=== PATIENT | male | born 1955 | race Caucasian/White ===

== ENCOUNTER → 2022-01-11 13:31 | Outpatient (BNVA) | payer MEDICARE, SELFPAY | PROVIDERS: Family Provider Family Medicine; Visit Provider Podiatrist Foot & Ankle Surgery | DX: E11.621 Type 2 diabetes mellitus with foot ulcer (principal); L97.513 Non-pressure chronic ulcer of other part of right foot with necrosis of muscle; E11.42 Type 2 diabetes mellitus with diabetic polyneuropathy | CPT/HCPCS: 11043; 73630; 99204 ==

== ENCOUNTER 2022-01-11 15:28 | Outpatient (CLI) | payer MEDICARE, SELFPAY | END 2022-01-11 15:29 | disposition home or self-care (01) | LOC: SPT 15:29 | PROVIDERS: Family Provider Family Medicine; Visit Provider Podiatrist Foot & Ankle Surgery | DX: Z46.89 Encounter for fitting and adjustment of other specified devices (principal); L97.513 Non-pressure chronic ulcer of other part of right foot with necrosis of muscle | CPT/HCPCS: 97760; L4361 ==

== ENCOUNTER → 2022-02-03 14:31 | Outpatient (BNVA) | payer MEDICARE, SELFPAY | PROVIDERS: Family Provider Family Medicine; Visit Provider Podiatrist Foot & Ankle Surgery | DX: E11.621 Type 2 diabetes mellitus with foot ulcer (principal); L97.513 Non-pressure chronic ulcer of other part of right foot with necrosis of muscle; E11.42 Type 2 diabetes mellitus with diabetic polyneuropathy; Z79.4 Long term (current) use of insulin | CPT/HCPCS: 11043 ==

== ENCOUNTER → 2022-02-17 15:41 | Outpatient (BNVA) | payer MEDICARE, SELFPAY | PROVIDERS: Family Provider Family Medicine; Visit Provider Podiatrist Foot & Ankle Surgery | DX: E11.621 Type 2 diabetes mellitus with foot ulcer (principal); L97.513 Non-pressure chronic ulcer of other part of right foot with necrosis of muscle; E11.42 Type 2 diabetes mellitus with diabetic polyneuropathy; Z79.4 Long term (current) use of insulin | CPT/HCPCS: 11043 ==

== ENCOUNTER → 2022-04-07 10:03 | Outpatient (BNVA) | payer MEDICARE, SELFPAY | PROVIDERS: Family Provider Family Medicine; Visit Provider Podiatrist Foot & Ankle Surgery | DX: E11.621 Type 2 diabetes mellitus with foot ulcer (principal); L97.513 Non-pressure chronic ulcer of other part of right foot with necrosis of muscle; E11.42 Type 2 diabetes mellitus with diabetic polyneuropathy; Z79.4 Long term (current) use of insulin | CPT/HCPCS: 11042 ==

== ENCOUNTER → 2022-04-21 10:56 | Outpatient (BNVA) | payer MEDICARE, SELFPAY | PROVIDERS: Family Provider Family Medicine; Visit Provider Podiatrist Foot & Ankle Surgery | DX: E11.621 Type 2 diabetes mellitus with foot ulcer (principal); L97.513 Non-pressure chronic ulcer of other part of right foot with necrosis of muscle; E11.42 Type 2 diabetes mellitus with diabetic polyneuropathy; Z79.4 Long term (current) use of insulin | CPT/HCPCS: 11042 ==

== ENCOUNTER → 2022-09-14 12:06 | Outpatient (BNVA) | payer MEDICARE, MEDICAID, SELFPAY | PROVIDERS: Family Provider Family Medicine; PCP Family Medicine; Visit Provider Otolaryngology | DX: L02.11 Cutaneous abscess of neck (principal) | CPT/HCPCS: 87070; 87075; 87205; 99204 ==

== ENCOUNTER 2022-09-15 09:45 | Outpatient (CLI) | payer MEDICARE, MEDICAID, SELFPAY ==
--- NOTE | 2022-09-15 10:00 | CT_ITS ---
WS: [id number] CT NECK TECHNIQUE: Noncontrast CT of the neck with coronal and sagittal reformatted images. CLINICAL INFORMATION: abscess of neck COMPARISON: None. DLP: 238.[address] scans at [facility] use at least one of these dose optimization techniques: automated e xposure control; mA and/or kV adjustment per patient size (includes targeted exams where dose is matc hed to clinical indication); or iterative reconstruction. FINDINGS: Noncontrast neck CT. In the area of concern, LEFT neck, at the level of the parotid tail is a large h eterogeneous soft tissue mass with central necrosis or abscess. Contrast not administered. Soft tissu e mass/abscess measures 3.6 x 4.5 x 4.8 cm AP by transverse by craniocaudal. Small amount of surround ing induration. Small amount of air centrally may be due to recent instrumentation. Loss of the fat p aneta involving the surrounding LEFT sternocleidomastoid, parotid tail, and submandibular gland. This abuts the carotid sheath. Associated surrounding soft tissue thickening. Neoplasm should be excluded in a patient this age. RIGHT parotid gland and submandibular gland are normal. Tongue base appears normal. Normal palatine t onsils. No evidence of supraglottic or glottic mass. Lung apices are well aerated. Slightly spiculate d opacity or fibrosis in the LEFT upper lobe anteriorly measuring 8 mm. Lung apices are otherwise wel l aerated. No cervical lymphadenopathy. Carotid bulb calcification bilaterally. Moderate spondylitic changes cervical spine. Mild mucosal thickening LEFT mastoid tip. RIGHT mastoid air cells well aerate d. Retention cyst RIGHT maxillary sinus. Polypoid mucosal thickening in the partially visualized para nasal sinuses. CT/CT neck wo con [id number] IMPRESSION: 1. Heterogeneous soft tissue mass with central necrosis or abscess in the area of concern measuring 3.6 x 4.5 x 4.8 cm AP by transverse by craniocaudal. Smal l amount of surrounding induration. Differential considerations include necroti c neoplasm versus thick walled abscess. Neoplasm should be excluded in a patien t this age. Contrast not administered today. 2. Small amount of surrounding induration and soft tissue edema. A few adjacen t slightly prominent lymph nodes. 3. No evidence of supraglottic or glottic mass. 4. 8mm slightly spiculated LEFT upper lobe opacity anteriorly versus focal fib rosis. Recommend chest CT follow-up.
== END 2022-09-15 09:46 | disposition home or self-care (01) ==
LOC: RAD 09:51
PROVIDERS: PCP Family Medicine; Visit Provider Otolaryngology
DX: L02.11 Cutaneous abscess of neck (principal)
CPT/HCPCS: 70490

== ENCOUNTER → 2022-09-27 10:03 | Outpatient (BNVA) | payer MEDICARE, MEDICAID, SELFPAY | PROVIDERS: PCP Family Medicine; Visit Provider Otolaryngology | DX: L02.11 Cutaneous abscess of neck (principal) | CPT/HCPCS: 99215 ==

== ENCOUNTER 2022-10-21 08:24 | Day surgery (SDC) | payer MEDICARE, MEDICAID, SELFPAY ==
[2022-10-20 14:23] VITALS: BMI 33.2
[2022-10-21] VITALS (13 sets, daily range): BP systolic 119–156; BP diastolic 71–98; PULSE 77–98; RESP 16–18; TEMP 36.1–36.3; O2SAT 93–100
[2022-10-21 09:08] LABS: Glucose Point of Care 208 mg/dL (70-110)
[2022-10-21] MEDS: sodium chloride 0.9% 1,000 ML 30 ML IV (09:17)
[2022-10-21 09:32] LABS: Anion Gap 12.7 (5-19); Blood Urea Nitrogen 16 mg/dL (8-23); Carbon Dioxide 25 mmol/L (22-29); Chloride 106 mmol/L (98-107); Creatinine Clr Calc Pharmacy 96.3463; Glomerular Filtration Rate 84.7 mL/min (90-130); Glucose 245 mg/dL (65-115); Osmolality Calculated 299 mOsm/kg (285-295); Potassium 3.7 mmol/L (3.5-5.1); Sodium 140 mmol/L (136-145)
--- NOTE | 2022-10-21 10:33 | W.PM.OPSUD ---
Surgery/Procedure H&P Update DATE OF PROCEDURE: October 21, 2022 DATE H&P PERFORMED: 09/27/22 H&P UPDATE INFORMATION: I have reviewed H&P completed within last 30 days, I have examined patient prior to procedure and No changes to prior documentation CHANGES TO PREVIOUS DOCUMENTATION: No changes PREOP DIAGNOSIS: Left upper neck cyst/abscess/mass PRIMARY INDICATION FOR PROCEDURE: Left upper neck cyst/abscess/mass PLANNED PROCEDURE: Operation Date: 10/21/22 10:20 Proposed Procedures p 79063- excision of neck mass l02.11(Left) - Jose Izaguirre MD
[2022-10-21] MEDS: ceFAZolin 2,000 MG in sodium chloride 0.9% (plus) 50 ML 100 MG IV (10:47)
[2022-10-21] MEDS: lidocaine-epi 2% 1.7mL Cartridge (OR Only) 6.8 ML XX (11:53)
[2022-10-21] MEDS: neomycin-poly-bacitracin oint 28 gm 1 APPLIC TOPICAL (11:58)
--- NOTE | 2022-10-21 12:18 | PM.OP ---
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 Procedure done: Excision of left neck mass Implants: Quarter inch [place] drain Specimens removed/disposition: Left neck mass Pathology: Left neck mass with frozen section showing metastatic cystic squamous cell carcinoma. Surgeon: Jose Izaguirre MD Anesthesia: General and Local Estimated blood loss: 25 mL Complications: No complications encountered Findings: Metastatic cystic squamous cell carcinoma with invasion into subcutaneous and cutaneous overlying tissue and invasion into the sternocleidomastoid muscle the great vessels the digastric muscle and deep to the digastric as far as palpable. It did not appear to invade or emanate from the submandibular gland. It also did not seem to emanate from the parotid gland. Brief History: 67-year-old male patient with a left neck mass. This has increased in size and decreased in size and drain spontaneously. The patient has been aware of this mass for about 4 months. He is a chewer of tobacco for many years. The mass is gone up and down in size and was treated with antibiotics. It did decrease with the antibiotics. Then it seemed to increase again. It drained spontaneously externally. CT scan revealed a likely malignant lesion. He is brought to the operating room at this time to undergo excision of this mass and if possible eradicate the process or at least get diagnostic tissue. The procedure its risks and complications of been explained in detail to the patient. The risks include bleeding infection numbness scarring swelling bruising recurrence need for additional treatment as this may be just a diagnostic procedure. Other risks include the nerves to give innervation to the ear and neck as well as motor innervation to the lower aspect of the face and lip the tongue the voicebox and the shoulder. With all these things understood and understanding anesthetic risks as well the patient gave informed consent and this was witnessed. Procedure: Description of procedure: The patient was placed on the operating table in the supine position. Adequate general endotracheal tube anesthesia was obtained. He was given Ancef IV for prophylaxis. A timeout was accomplished identifying the patient date of plan procedure allergies fire risk and medications given. With all in agreement the procedure continued. Sign the site was noted. Alcohol was used to cleanse the skin. A total of 6.8 mL of 2% Xylocaine with 1-100,000 epinephrine was used to infiltrate the skin and the planned incision. This was designed in case a parotidectomy was performed. The incision was to extend at least from the inferior aspect anterior to the auricle curve around behind the ear and then extended into a mid neck skin crease line. The patient was then prepped and draped in usual fashion. A marking pen was used to outline the planned incision. The incision was created with a 15 blade carrying it down to the subcutaneous fat layer. In this layer a flap was raised from posterior to anterior. It was noted immediately that the mass extended with invasion of tissue into the subcutaneous layer and into the undersurface in the deep layers of the dermis. It was on top of the sternocleidomastoid muscle with invasion into the muscle layers. Dissection superiorly revealed that it was overlying the tail of parotid area but not emanating from it. Dissection was then carried anteriorly and it was found that the mass was extending deep down into the great vessels invasive and adherent. It was also invasive into the digastric muscle. Palpation revealed that the mass extended deep to the digastric muscle as far as palpation was allowed. This would indicate that likely this emanated from the oropharynx or hypopharyngeal area. None was seen on previous exam as a source. Nothing was evident on CT scan of the primary. The mass main body of it was excised and forwarded to pathology for frozen section. While that was accomplished bleeding was controlled with medium size clips as well as bipolar cautery. The area was then irrigated with copious amounts of sterile water. Reevaluation to see if there was any chance of being able to resect this was made but in my opinion there was no way to eradicate this disease completely by surgery. I debulked is much as was possible. Frozen section diagnosis returned as metastatic cystic squamous cell carcinoma. With that information in hand the [place] drain was placed to the depths of the incision under the digastric muscle and extending out the inferior most aspect of the incision. This was stapled to the skin neck. Skin jamee were used to close dehiscent areas where the drain site from the tumor was excised along with the tumor mass. Then the flap was closed with interrupted 4-0 chromic closing the subcutaneous and platysmal layer and skin jamee to close the skin. The area was cleansed. Drapes were removed. Neosporin ointment was applied over the incision and drain site and fluffs were placed followed by 2 Kerlix rolls around the neck. Care was taken to make sure that the tautness of the dressing was appropriate. The patient was returned to anesthesia for wake-up and transport to recovery. The patient tolerated the procedure well and estimated blood loss of 25 mL and arrived in recovery in stable condition.
[2022-10-21] MEDS: fentaNYL 50 mcg/mL INJ 2mL IVP (12:42)
[2022-10-21] MEDS: oxyCODONE-APAP 10-325 mg Tablet 1 TAB PO (13:17)
--- NOTE | 2022-10-21 13:40 | ANES.PREANE2 ---
Pre-Anesthetic Assessment Height/Weight: Height 1.75 m Weight 102.058 kg Temp Pulse Resp BP Pulse Ox O2 Del Method O2 Flow Rate 97.4 F L 83 18 156/95 98 Room Air 6 10/21/22 12:58 10/21/22 13:16 10/21/22 13:17 10/21/22 13:16 10/21/22 13:17 10/21/22 13:16 10/21/22 12:30 Preop Diagnosis: Left upper neck cyst/abscess/mass Operation Date: 10/21/22 10:20 Proposed Procedures p 97003- excision of neck mass l02.11(Left) - Jose Izaguirre MD Familial anesthetic complications: none Was Beta Gala taken within 24 hours: N/A Was Clonidine taken within 24 hours: N/A Last intake: Intake Last Liquid Date 10/20/22 Last Liquid Time 17:30 Last Solid Date 10/20/22 Last Solid Time 17:30 Social Tobacco (h/o smoking, chews) and No alcohol Exam alert, oriented x 3 and regular rate & rhythm Airway Submandibular: within normal limits Cervical ROM: within normal limits Mallampati: Class II Dentition: chipped Comments: Comments: Poor dentition Pulmonary Chronic Obstructive Pulmonary Disease CV/HEM Coronary Artery Disease, Hypertension and Myocardial Infarction Metabolic Diabetes Mellitus, Morbid Obesity and Thyroid Disease Anesthetic Plan ASA status: 3 Anesthesia: General Medications/Allergies Home Medications Medication Instructions Recorded Confirmed Last Taken Type cam boot to right #1 ea 01/11/22 09/27/22 Unknown Rx empagliflozin 25 mg tablet 25 mg PO QAM 01/11/22 10/21/22 10/20/22 History (Jardiance) hydroxyzine HCl 25 mg tablet 25 mg PO QID PRN Sleep 01/11/22 10/21/22 10/20/22 History insulin detemir U-100 100 unit/mL 100 unit SUBCUT DAILY 01/11/22 10/21/22 10/20/22 17:00 History (3 mL) subcutaneous pen (Levemir FlexTouch U-100 Insulin) levothyroxine 100 mcg capsule 100 mcg PO DAILY 01/11/22 10/21/22 10/20/22 History naproxen 500 mg tablet 500 mg PO BID 01/11/22 10/21/22 10/07/22 History sertraline 25 mg tablet (Zoloft) 25 mg PO DAILY 01/11/22 10/21/22 10/20/22 History sildenafil 50 mg tablet (Viagra) 50 mg PO DAILY PRN Sexual Activity 01/11/22 10/21/22 Unknown History trazodone 150 mg tablet 150 mg PO DAILY 01/11/22 10/21/22 10/20/22 History Diabetic Shoes with 3 Pair of #1 ea 04/21/22 09/27/22 Unknown Rx Inserts cephalexin 500 mg capsule 500 mg PO TID 10 days #30 caps 10/21/22 Unknown Rx oxycodone-acetaminophen 10 mg-325 1 tab PO Q4H PRN pain 5 days #30 10/21/22 Unknown Rx mg tablet tabs Allergies Allergy/AdvReac Type Severity Reaction Status Date / Time No Known Allergies Allergy Verified 10/21/22 08:47 Current Medications Generic Name Dose Route Start Last Admin Trade Name Freq PRN Reason Stop Dose Admin Fentanyl 50 mcg 10/21/22 12:10 10/21/22 12:42 Fentanyl 50 Mcg/Ml Inj 2ml IVP 10/22/22 12:10 50 mcg Q5M PRN Administration Pain level 6-10 PACU Phase I Sodium Chloride 1,000 mls @ 30 mls/hr 10/21/22 09:00 10/21/22 11:59 Sodium Chloride 0.9% IV 10/22/22 08:59 Infused .Q24H SHIKHA Infusion PFSH Anesthesia Social History Smoking and tobacco status: never smoked Data Anesthesia 10/21/22 08:00 BMP 10/21/22 08:00 Sodium 140 Potassium 3.7 Chloride 106 Carbon Dioxide 25 BUN 16 Creatinine 0.9 Glucose 245 H Calcium 9.0 Cardiac Studies: No Data to Display
--- NOTE | 2022-10-21 15:21 | ANE.PACU2 ---
Inpatient post-anesthesia follow up: Airway intact: Yes Vital signs: Temperature 97.4 F Pulse Rate 83 Respiratory Rate 18 Blood Pressure 156/95 Pulse Oximetry 98 Oxygen Delivery Me thod Room Air Oxygen Flow Rate 6 Fraction of Inspir ed Oxygen Hydration adequate: Yes Nausea and vomiting: No Pain level: 2 Mental status: Baseline
[2022-10-22 13:10] LABS: Lymphoma Profile (BBPL) See Report
== END 2022-10-21 13:35 | disposition home or self-care (01) ==
PROVIDERS: Anesthesiology; PCP Family Medicine; Visit Provider Otolaryngology
PROC: (CPT 21556; principal; 2022-10-21 10:10)
DX: I10 Essential (primary) hypertension (principal); I25.2 Old myocardial infarction; E11.9 Type 2 diabetes mellitus without complications; E66.01 Morbid (severe) obesity due to excess calories; Z68.33 Body mass index [BMI] 33.0-33.9, adult; E03.9 Hypothyroidism, unspecified; Z79.891 Long term (current) use of opiate analgesic; C79.89 Secondary malignant neoplasm of other specified sites
CPT/HCPCS: 21556; 36415; 36416; 80048; 82962; 88184; 88185; 88307; 88331; 88342; A4216; J0690; J2250; J2405; J2704; J2710; J3010; J3490; J7030

== ENCOUNTER → 2022-10-25 13:54 | Outpatient (BNVA) | payer MEDICARE, MEDICAID, SELFPAY | PROVIDERS: PCP Family Medicine; Visit Provider Otolaryngology | DX: C09.9 Malignant neoplasm of tonsil, unspecified (principal); C79.89 Secondary malignant neoplasm of other specified sites | CPT/HCPCS: 99024 ==

== ENCOUNTER → 2022-10-29 10:48 | Outpatient (BNVA) | payer MEDICARE, MEDICAID, SELFPAY | PROVIDERS: PCP Family Medicine; Visit Provider Otolaryngology | DX: Z48.89 Encounter for other specified surgical aftercare (principal) | CPT/HCPCS: 99024 ==

== ENCOUNTER → 2022-11-01 09:17 | Outpatient (BNVA) | payer MEDICARE, MEDICAID, SELFPAY | PROVIDERS: PCP Family Medicine; Visit Provider Otolaryngology | DX: Z48.89 Encounter for other specified surgical aftercare (principal); C79.89 Secondary malignant neoplasm of other specified sites; C44.42 Squamous cell carcinoma of skin of scalp and neck | CPT/HCPCS: 99024 ==

== ENCOUNTER 2022-11-16 15:30 | Oncology outpatient (recurring) (ONCR) | payer MEDICARE, MEDICAID, SELFPAY ==
[2022-11-16 15:14] LABS: Basophils # 0.1 10^3/uL (0.0-0.1); Basophils % 0.9 %; Eosinophils # 0.2 10^3/uL (0.0-0.8); Hematocrit 48.3 % (42.0-52.0); Hemoglobin 16.2 g/dL (11.7-16.6); Lymphocytes # 1.6 10^3/uL (0.8-4.8); Lymphocytes % 27.9 %; Mean Corpuscular HGB Conc 33.5 g/dL (30.0-36.0); Mean Corpuscular Hemoglobin 29.2 pg (28.0-34.0); Mean Platelet Volume 9.5 fL (7.4-10.4); Monocytes # 0.7 10^3/uL (0.2-0.9); Monocytes % 11.8 %; Neutrophils # 3.13 10^3/uL (1.8-7.7); Nucleated Red Blood Cells % 0 %; Platelet Count 187 10^3/cmm (130-400); Red Blood Count 5.55 10^6/uL (4.1-5.3); Red Cell Distribution Width 12.5 % (12.1-15.1); White Blood Count 5.6 10^3/uL (4.0-10.0)
--- NOTE | 2022-11-16 15:30 | CT_ITS ---
WS: [id number] CT NECK TECHNIQUE: Contrast-enhanced CT of the neck with coronal and sagittal reformatted images. CLINICAL INFORMATION: staging metastatic tonsillar cancer COMPARISON: CT neck September 15, 2022 DLP: 230.[address] scans at [facility] use at least one of these dose optimization techniques: automated e xposure control; mA and/or kV adjustment per patient size (includes targeted exams where dose is matc hed to clinical indication); or iterative reconstruction. FINDINGS: Interval postoperative changes resection of the previously described necrotic LEFT neck mass. Postope rative changes in the LEFT infraparotid soft tissues in the area of surgery. Associated surgical clip s. Heterogeneously enhancing soft tissue in the surgical bed extending to the submandibular gland ant eriorly and sternocleidomastoid posteriorly with loss of the fat planes compatible with additional pr ogressed disease. This measures approximately 5.1 x 1.5 x 6.5 cm AP by transverse by craniocaudal. Lo ss of the fat plane extending into the submandibular space. Involvement of the platysma. This extends to the dermis superficially. This also involves the inferior margin of the parotid gland with invasi on into the inferior margin and tail of the parotid gland. Involvement of the sternocleidomastoid muscle belly. Associated narrowing of the LEFT jugular vein. M ild carotid bulb calcification. Suspicious LEFT submandibular lymph node measuring 13 mm. Soft tissue induration extends into the LEFT pharyngeal soft tissues. No airway narrowing. Mild narrowing of the piriform sinus. Slight prominence of the LEFT palatine tonsil appears slightly progressed compared t o previous. Stable slightly spiculated LEFT upper lobe opacity measuring 10 mm appears unchanged. Mild polypoid m ucosal thickening in the paranasal sinuses partially visualized. Mastoid air cells well aerated. Muco riky thickening LEFT mastoid tip. Mild/moderate spondylitic changes cervical spine. CT/CT neck w con* [id number] IMPRESSION: 1. Postoperative changes debulking of the LEFT neck mass. 2. Progressed soft tissue bulky disease involving the LEFT neck in the area of surgical clips described above. This extends anteriorly to involve the submand ibular space and posteriorly to involve the belly of the sternocleidomastoid. T his involves the LEFT palatine tonsil and abuts the LEFT pharyngeal soft tissue s. Narrowing LEFT piriform sinus. 3. Narrowing of the LEFT jugular vein. Loss of the fat plane in the submandibu lar space with involvement of the submandibular gland. Involvement of the infer ior aspect of the parotid gland with invasion. 4. Prominent LEFT submandibular lymph node measuring 13 mm is progressed and s uspicious. Involvement of the platysma. 5. No visualized right-sided cervical lymphadenopathy. 6. Staging could be further performed with PET CT for better detail. 7. Stable spiculated opacity LEFT upper lobe anteriorly nonspecific. This may represent fibrosis measuring 10 mm but metastatic disease difficult to entirely exclude.
--- NOTE | 2022-11-16 15:30 | CT_ITS ---
WS: [id number] CT CHEST TECHNIQUE: Contrast enhanced CT of the chest with coronal and sagittal reformatted images. CLINICAL INFORMATION: staging COMPARISON: CT neck November 16, 2022 DLP: 397.[address] scans at [facility] use at least one of these dose optimization techniques: automated e xposure control; mA and/or kV adjustment per patient size (includes targeted exams where dose is matc hed to clinical indication); or iterative reconstruction. FINDINGS: Lungs are well aerated. No acute pulmonary infiltrates. No focal pneumonia or pleural fluid. Slightly spiculated opacity LEFT upper lobe anteriorly measuring 9 to 10 mm. This has a fibrotic appearance a nd doubtful for metastatic disease. Calcified granulomas. No other suspicious pulmonary parenchymal o pacities. No mediastinal or hilar lymphadenopathy. Normal thyroid gland. Normal caliber thoracic aort a. Coronary calcification. Peribronchial and RIGHT hilar calcified lymph nodes. No axillary lymphaden opathy. Adrenal glands are normal./Infiltration the liver. Small esophageal hiatal hernia. Mild thoracic kyph osis. Mild chronic anterior wedging in the mid thoracic spine. CT/CT chest w con* [id number] IMPRESSION: 1. Slightly spiculated opacity LEFT upper lobe anteriorly measuring 9 to 10 mm . This has a fibrotic appearance and doubtful for metastatic disease. Recommend 6 month interval follow-up with chest CT 2. No mediastinal or hilar lymphadenopathy. 3. No acute pulmonary infiltrates 4. No other suspicious pulmonary parenchymal opacities.
[2022-11-16] MEDS: iohexol 350 mg/mL 500 mL Btl (per mL) IV ×2 (15:34→15:35)
[2022-11-16 15:44] LABS: Alanine Aminotransferase 14 U/L (0-41); Albumin Level 3.9 g/dL (3.5-5.2); Alkaline Phosphatase 69 U/L (40-130); Anion Gap 14.4 (5-19); Aspartate Amino Transferase 14 U/L (0-40); Blood Urea Nitrogen 13 mg/dL (8-23); Calcium 9.4 mg/dL (8.5-10.5); Carbon Dioxide 26 mmol/L (22-29); Chloride 98 mmol/L (98-107); Globulin 3.2 g/dL (1.3-4.6); Glucose 217 mg/dL (65-115); Osmolality Calculated 285 mOsm/kg (285-295); Potassium 4.4 mmol/L (3.5-5.1); Sodium 134 mmol/L (136-145); Total Bilirubin 0.6 mg/dL (0.15-1.2); Total Protein 7.1 g/dL (6.6-8.7)
[2022-11-16 15:45] LABS: Estmated Average Glucose 200; Hemoglobin A1C 8.6 % (4.0-6.0)
== END 2022-11-16 23:59 | disposition home or self-care (01) ==
LOC: ONCMED 11-17 00:01
PROVIDERS: PCP Nurse Practitioner Family; Visit Provider Internal Medicine Medical Oncology
DX: C77.0 Secondary and unspecified malignant neoplasm of lymph nodes of head, face and neck (principal); E03.9 Hypothyroidism, unspecified; E11.9 Type 2 diabetes mellitus without complications; Z48.89 Encounter for other specified surgical aftercare
CPT/HCPCS: 36415; 70491; 71260; 80053; 83036; 84443; 85025; 99205; Q9967